=== PATIENT | female | born 1995 | race Caucasian/White ===

== ENCOUNTER 2017-11-28 21:48 | Emergency (ER) | payer OTHER ==
[~2017-11-28] VITALS: Ht 165.1 cm; Wt 72.7 kg
[2017-11-28 21:50] VITALS: BP 103/55; PULSE 112; RESP 20; TEMP 98.7; O2SAT 99
[2017-11-28] MEDS ORDERED: ALBU6.7H INH (22:55)
[2017-11-28] MEDS ORDERED: OSEL75 PO (22:55)
--- NOTE | 2017-11-28 22:56 | PD ---
HPI Chief Complaint: Cold / Flu Symptoms Time Seen by Provider: 22:45 Travel History International Travel<30 days: No Contact w/Intl Traveler<30days: No Traveled to known affect area: No History of Present Illness HPI EXPOSED TO SICK CONTACT (BOYFRIEND) WHO WAS DX WITH FLU AND STARTED ON TREATMENT 2 DAYS AGO...ONSET YESTERDAY OF DRY COUGH, BODY ACHES, CHILLS, MILD HEAD PAIN, 4/10, SOME SUBJECTIVE FEVERS. PATIENT HAS NO ALLEVIATING / AGGRAVATING FACTORS. PFSH Past Medical History Anxiety: Yes Diminished Hearing: No Immunizations Current: Yes ?: Not LMP: 2014 Past Surgical History Body Medical Devices: SELECTIVE MUTISM - WON'T SPEAK UNLESS SHE'S COMFORTABLE Social History Alcohol Use: No Tobacco Use: No Substance Use: No Allergies-Medications (Allergen,Severity, Reaction): Coded Allergies: No Known Allergies (Verified Adverse Reaction, Unknown, 11/28/17) Reported Meds & Prescriptions Reported Meds & Active Scripts Active Tamiflu (Oseltamivir Phosphate) 75 Mg Cap 75 Mg PO BID 10 Days Proventil Hfa 6.7 GM Inh (Albuterol Sulfate) 90 Mcg/Act Aer 1 Puff INH Q4H PRN Review of Systems General / Constitutional: Positive: Chills Eyes: No: Visual changes HENT: No: Headaches Cardiovascular: No: Chest Pain or Discomfort Respiratory: Positive: Cough Gastrointestinal: No: Abdominal Pain Genitourinary: No: Dysuria Musculoskeletal: No: Pain Skin: No Rash Neurologic: No: Weakness Psychiatric: No: Depression Endocrine: No: Polydipsia Hematologic/Lymphatic: No: Easy Bruising Physical Exam Narrative GENERAL: SKIN: Warm and dry. HEAD: Atraumatic. Normocephalic. EYES: Pupils equal and round. No scleral icterus. No injection or drainage. ENT: No nasal bleeding or discharge. Mucous membranes pink and moist. RHINORRHEA NECK: Trachea midline. No JVD. CARDIOVASCULAR: Regular rate and rhythm. RESPIRATORY: No accessory muscle use. Clear to auscultation. Breath sounds equal bilaterally...NO WHEEZING GASTROINTESTINAL: Abdomen soft, non-tender, nondistended. MUSCULOSKELETAL: Extremities without clubbing, cyanosis, or edema. No obvious deformities. NEUROLOGICAL: Awake and alert. No obvious cranial nerve deficits. Motor grossly within normal limits. Five out of 5 muscle strength in the arms and legs. Normal speech. PSYCHIATRIC: Appropriate mood and affect; insight and judgment normal. Data Data Last Documented VS Orders Orders Ed Discharge Order (11/28/17 23:02) MDM Medical Decision Making Medical Screen Exam Complete: Yes Emergency Medical Condition: Yes Medical Record Reviewed: Yes Interpretation(s) PULSE OX: EXCELLENT PLETH WAVE, PULSE OX 98% RA WHICH IS WITHIN NORMAL LIMITS Differential Diagnosis VIRAL SYNDROME V BRONCHITIS V FLU Narrative Course due to exposure to a close contact with flu, patient willl be treated with tamiflu. Diagnosis Primary Impression: CLINICAL FLU Patient Instructions: General Instructions, Influenza (DC) Scripts Oseltamivir (Tamiflu) 75 Mg Cap 75 MG PO BID for Mgmt Viral Infection for 10 Days, #20 CAP 0 Refills Prov: Rod Griggs MD 11/28/17 Albuterol 6.7 GM Inh (Proventil Hfa 6.7 GM Inh) 90 Mcg/Act Aer 1 PUFF INH Q4H Y for SHORTNESS OF BREATH, #1 INHALER 0 Refills Prov: Rod Griggs MD 11/28/17 Disposition: 01 DISCHARGE HOME Condition: Stable Rod Griggs MD Nov 28, 2017 22:55
== END 2017-11-28 23:13 | disposition home or self-care (01) ==
LOC: NEPD 21:48
DX: J11.1 Influenza due to unidentified influenza virus with other respiratory manifestations (principal); F41.9 Anxiety disorder, unspecified; Z20.828 Contact with and (suspected) exposure to other viral communicable diseases
CPT/HCPCS: 99283